=== PATIENT | male | born 1970 | race Native Hawaiian/Other Pacific Islander ===

== ENCOUNTER 2017-10-13 15:40 | Emergency (ER) | payer OTHER ==
[2017-10-13 15:56] VITALS: BP 144/93
--- NOTE | 2017-10-13 17:24 | ED Physician Documentation ---
History of Present Illness - Stated complaint Stated Complaint: SINUS PRESSURE - Chief complaint Chief Complaint: General - Additonal information Additional information: hx from pt 47 male sinus pressure and drainage for a month now with fever chills cough too Review of Systems Constitutional: reports: Fever, Chills Nose: reports: Congestion, Sinus pressure / pain Respiratory: reports: Cough GI: denies: Vomiting, Diarrhea Endocrine: denies: Easy bruising / bleeding Immunocompromised: denies: Immunocompromised PD PAST MEDICAL HISTORY - Past Medical History Past Medical History: No Respiratory: Pneumonia - Past Surgical History Past Surgical History: Yes General: Other - Present Medications Home Medications: Ambulatory Orders Medication Instructions Recorded Confirmed Aspirin Chewable [[place] 1 tab PO DAILY 10/13/17 10/13/17 Aspirin] Azithromycin [Zithromax] 250 mg PO DAILY #6 tablet 10/13/17 Benzonatate [Tessalon] 100 mg PO TID PRN #20 capsule 10/13/17 Fluticasone [Flonase] 1 sprays SOWMYA BID PRN #1 bottle 10/13/17 guaiFENesin/DEXTROMETHORPHAN 10 ml PO Q6H PRN #120 ml 10/13/17 [Robitussin Dm] - Allergies Allergies/Adverse Reactions: Allergies Allergy/AdvReac Type Severity Reaction Status Date / Time No Known Drug Allergies Allergy Verified 10/13/17 15:51 - Social History Does the pt smoke?: No Smoking Status: Never smoker Does the pt drink ETOH?: No Does the pt have substance abuse?: Yes Substance Use and Type: Marijuana - Immunizations Immunizations are current?: No - POLST Patient has POLST: No PD ED PE NORMAL - Vitals Vital signs reviewed: Yes - General General: Alert and oriented X 3 - HEENT HEENT: PERRL, Ears normal, Moist mucous membranes, Pharynx benign, Other (no sig sinus TTP or swelling) - Neck Neck: No: No adenopathy (sig ant adenopathy jamison) - Cardiac Cardiac: RRR - Respiratory Respiratory: Other (ronchi L side) - Derm Derm: Normal color - Neuro Neuro: Alert and oriented X 3 Results - Vitals Vitals: Vital Signs - 24 hr 10/13/17 15:51 Temperature 37.1 C Heart Rate 53 L Respiratory 14 Rate Blood Pressure 144/93 H O2 Saturation 100 Oxygen O2 Source Room air PD MEDICAL DECISION MAKING - ED course ED course: d/w pt and and they agree to tx presumptively for pna based on fever chills coigh and focal ronchi L lung Departure - Departure Disposition: 01 Home, Self Care Clinical Impression: Sinus congestion, Cervical adenopathy Pneumonia Qualifiers: Pneumonia type: due to unspecified organism Laterality: left Lung location: unspecified part of lung Qualified Code(s): J18.9 - Pneumonia, unspecified organism Condition: Good Instructions: ED Pneumonia Adult Follow-Up: Yonathan Haney DO [Primary Care Provider] - (to recheck the lymph nodes and lungs after finishing the antibiotics - if the symptoms do not resolve consider an xray. Please get your blood pressure rechecked as well) Prescriptions: Azithromycin [Zithromax] 250 mg PO DAILY #6 tablet Benzonatate [Tessalon] 100 mg PO TID PRN #20 capsule PRN Reason: to ease cough Fluticasone [Flonase] 1 sprays SOWMYA BID PRN #1 bottle PRN Reason: allergies guaiFENesin/DEXTROMETHORPHAN [Robitussin Dm] 10 ml PO Q6H PRN #120 ml PRN Reason: Cough Forms: Activity restrictions
== END 2017-10-13 17:46 | disposition home or self-care (01) ==
LOC: ED 15:40
DX: J18.9 Pneumonia, unspecified organism (principal); R09.81 Nasal congestion; R59.0 Localized enlarged lymph nodes; Z79.82 Long term (current) use of aspirin
CPT/HCPCS: 99283

== ENCOUNTER 2020-05-10 10:39 | Emergency (ER) | payer OTHER ==
[2020-05-10 11:12] LABS: GLUCOSE, URINE (UA) NEGATIVE (NEGATIVE); KETONES,URINE (UA) TRACE mg/dL (NEGATIVE); LEUKOCYTE ESTERASE, URINE NEGATIVE (NEGATIVE); NITRITE,URINE NEGATIVE (NEGATIVE); OCCULT BLOOD,URINE MODERATE (NEGATIVE); PH,URINE 5.5 PH (5.0-7.5); PROTEIN,URINE >=300 mg/dL (NEGATIVE); UROBILINOGEN,URINE 4 E.U./dL (NORMAL)
[2020-05-10 11:15] LABS: BILIRUBIN,URINE NEGATIVE (NEGATIVE); CLARITY,URINE HAZY (CLEAR); ICTOTEST,URINE NEGATIVE
[2020-05-10 11:26] LABS: BACTERIA,URINE Few /HPF (None Seen); MUCUS,URINE Few Strands; SQUAMOUS EPITHELIAL CELL,UR RARE Squamous (<= Few)
--- NOTE | 2020-05-10 11:51 | ED Physician Documentation ---
History of Present Illness - Stated complaint Stated Complaint: CONGESTION/R FOOT SWELLING - Chief complaint Chief Complaint: Cardiac - History obtained from History obtained from: Patient - Additonal information Additional information: 50-year-old male presents to the emergency department for evaluation of hand and feet swelling and new onset dyspnea. Patient reports that for the last 4 months at least he has noticed that the right hand and leg are markedly swollen especially when he wakes up in the morning. The swelling does improve through the day. However over the last 2 days he has noticed that he is short of air with even minimal exertion and has had some chest pressure. On initial exam in the room I note that both his arms and legs are swollen though the right side is slightly larger than the left. I also note that he is in atrial fibrillation. I asked this gentleman if he has any history of heart problems. He reports that in 2010 he was scheduled to undergo a neck fusion. On the morning of the surgery they did an EKG and found that he was in atrial fib. He reports that the surgery was canceled and he underwent 2 days of testing at [facility] in [place]. It is not clear to me what the final treatment plan for his atrial fib was or if he converted to sinus rythm. It seems that through the last 10 years this gentleman has never had treatment for his high blood pressure. at present he denies chest pressure, but feels very short of breath. He denies feeling light headed or dizzy. Review of Systems Constitutional: denies: Fever, Chills Nose: denies: Rhinorrhea / runny nose, Congestion Cardiac: reports: Palpitations, Pedal edema. denies: Chest pain / pressure, Calf pain Respiratory: reports: Dyspnea. denies: Cough, Hemoptysis, Wheezing GI: denies: Abdominal Pain, Abdominal Swelling, Nausea, Vomiting : denies: Dysuria, Frequency Skin: denies: Rash Musculoskeletal: denies: Neck pain, Back pain Neurologic: denies: Generalized weakness, Focal weakness, Numbness, Difficulty speaking, Syncope, Seizure, Altered mental status, Headache, Head injury Psychiatric: denies: Depressed, Suicidal PD PAST MEDICAL HISTORY - Past Medical History Past Medical History: Yes Cardiovascular: None Respiratory: Pneumonia Neuro: None Endocrine/Autoimmune: None GI: None : None HEENT: None Psych: None Musculoskeletal: None Derm: None - Past Surgical History Past Surgical History: Yes General: Other - Present Medications Home Medications: Ambulatory Orders Medication Instructions Recorded Confirmed Aspirin Chewable [[place]co 1 tab PO DAILY 10/13/17 10/13/17 Aspirin] - Allergies Allergies/Adverse Reactions: Allergies Allergy/AdvReac Type Severity Reaction Status Date / Time No Known Drug Allergies Allergy Verified 05/10/20 10:54 - Social History Does the pt smoke?: No Smoking Status: Never smoker Does the pt drink ETOH?: No Does the pt have substance abuse?: Yes - Immunizations Immunizations are current?: No - POLST Patient has POLST: No PD ED PE EXPANDED - General General: Alert, Well developed/nourished, Anxious - HEENT HEENT: Atraumatic, PERRL, Moist mucous membranes - Eyes Eyes: PERRL - Neck Neck: Supple w/out meningeal sx. No: Adenopathy - Cardiac Cardiac: Irregularly irregular, Murmur Present, Radial strong equal, Pedal strong equal, Cap refill < 2 sec, Other (All 4 extremities noted to be edematous though right side greater than left. Mildly pitting.) - Respiratory Respiratory: Clear to ausultation jamison. No: Distress, Labored, Wheezing, Decreased breath sounds - Abdomen Abdomen: Normal Bowel sounds. No: Tender to palpation - Back Back: No: CVA TTP right, CVA TTP left - Derm Derm: Bruising - Extremities Extremities: Pedal edema R, Pedal edema L. No: Right calf TTP/cord, Left calf TTP/cord - Neuro Neuro: Alert and Oriented X 3, CNII-XII intact, Normal finger nose, Normal speech - GCS Eye Opening: Spontaneous Motor: Obeys Commands Verbal: Oriented Total: 15 Results - Vitals Vitals: Vital Signs - 24 hr 05/10/20 05/10/20 05/10/20 10:48 12:22 13:10 Temperature 37.1 C Heart Rate 72 120 H 126 H Respiratory 20 27 H Rate Blood Pressure 159/124 H 152/125 H 156/131 H O2 Saturation 94 99 05/10/20 05/10/20 05/10/20 13:15 13:20 13:44 Temperature Heart Rate 96 92 86 Respiratory 30 H Rate Blood Pressure 156/113 H 146/113 H 160/109 H O2 Saturation 100 05/10/20 05/10/20 05/10/20 14:00 14:11 14:18 Temperature 36.9 C Heart Rate 103 H 97 90 Respiratory 24 27 H 28 H Rate Blood Pressure 152/121 H 160/128 H 149/118 H O2 Saturation 100 100 100 05/10/20 05/10/20 05/10/20 14:30 15:00 15:30 Temperature Heart Rate 97 86 87 Respiratory 22 24 17 Rate Blood Pressure 158/124 H 156/112 H 165/124 H O2 Saturation 100 100 100 05/10/20 05/10/20 05/10/20 16:00 16:30 17:00 Temperature Heart Rate 87 83 79 Respiratory 33 H 32 H 15 Rate Blood Pressure 140/120 H 159/116 H 161/123 H O2 Saturation 98 100 100 05/10/20 05/10/20 05/10/20 17:30 18:00 18:30 Temperature Heart Rate 64 83 86 Respiratory 21 19 19 Rate Blood Pressure 167/126 H 161/140 H 171/122 H O2 Saturation 100 100 100 05/10/20 05/10/20 05/10/20 19:00 19:49 20:00 Temperature Heart Rate 83 77 81 Respiratory 18 28 H Rate Blood Pressure 188/134 H 168/115 H 159/110 H O2 Saturation 99 100 100 Oxygen O2 Source Nasal cannula Oxygen Flow Rate 2 - EKG (time done) 1127 Rate: Rate (enter#) (103) Rhythm: Atrial fibrillation [place]: Other Intervals: Normal [place], Prolonged QT QRS: LVH Ischemia: Non specific changes (diffuse t wave flattening) Compare to prior EKG: Old EKG unavailable Computer interpretation: Agree with computer - Labs Labs: Laboratory Tests 05/10/20 05/10/20 05/10/20 11:07 12:00 12:00 WBC 5.8 RBC 4.72 Hgb 15.3 Hct 45.3 MCV 96.0 H MCH 32.4 H MCHC 33.8 RDW 13.6 Plt Count 169 MPV 10.5 Neut # (Auto) 3.7 Lymph # (Auto) 1.3 L Lipscomb # (Auto) 0.5 Eos # (Auto) 0.3 Baso # (Auto) 0.0 Absolute Nucleated RBC 0.00 Nucleated RBC % 0.0 PT INR Anti-Xa Level Sodium Potassium Chloride Carbon Dioxide Anion Gap BUN Creatinine Estimated GFR (MDRD) Glucose Calcium Total Bilirubin AST ALT Alkaline Phosphatase Troponin I High Sens C-React Prot High Sens B-Natriuretic Peptide 1833 H Total Protein Albumin Globulin Albumin/Globulin Ratio Lipase Urine Color DARK YELLOW Urine Clarity HAZY Urine pH 5.5 Ur Specific [place] >=1.030 H Urine Protein >=300 H Urine Glucose (UA) NEGATIVE Urine Ketones TRACE Urine Occult Blood MODERATE H Urine Nitrite NEGATIVE Urine Bilirubin NEGATIVE Urine Urobilinogen 4 H Ur Leukocyte Esterase NEGATIVE Urine RBC 11-25 H Urine WBC 6-10 H Ur Squamous Epith Cells RARE Squamous Urine Bacteria Few Urine Mucus Few Strands Ur Microscopic Review INDICATED 05/10/20 05/10/20 05/10/20 12:00 12:00 12:00 WBC RBC Hgb Hct MCV MCH MCHC RDW Plt Count MPV Neut # (Auto) Lymph # (Auto) Lipscomb # (Auto) Eos # (Auto) Baso # (Auto) Absolute Nucleated RBC Nucleated RBC % PT 17.4 H INR 1.6 H Anti-Xa Level Sodium 136 Potassium 3.6 Chloride 102 Carbon Dioxide 27 Anion Gap 7.0 BUN 21 H Creatinine 1.1 Estimated GFR (MDRD) 70 L Glucose 123 H Calcium 8.3 L Total Bilirubin 1.2 H AST 40 ALT 30 Alkaline Phosphatase 70 Troponin I High Sens 3131.3 H* C-React Prot High Sens B-Natriuretic Peptide Total Protein 7.6 Albumin 3.3 Globulin 4.3 H Albumin/Globulin Ratio 0.8 L Lipase 29 Urine Color Urine Clarity Urine pH Ur Specific [place] Urine Protein Urine Glucose (UA) Urine Ketones Urine Occult Blood Urine Nitrite Urine Bilirubin Urine Urobilinogen Ur Leukocyte Esterase Urine RBC Urine WBC Ur Squamous Epith Cells Urine Bacteria Urine Mucus Ur Microscopic Review 05/10/20 05/10/20 05/10/20 13:25 13:25 16:35 WBC RBC Hgb Hct MCV MCH MCHC RDW Plt Count MPV Neut # (Auto) Lymph # (Auto) Lipscomb # (Auto) Eos # (Auto) Baso # (Auto) Absolute Nucleated RBC Nucleated RBC % PT INR Anti-Xa Level 0.4 Sodium Potassium Chloride Carbon Dioxide Anion Gap BUN Creatinine Estimated GFR (MDRD) Glucose Calcium Total Bilirubin AST ALT Alkaline Phosphatase Troponin I High Sens 3267.2 H* C-React Prot High Sens 7.1 B-Natriuretic Peptide Total Protein Albumin Globulin Albumin/Globulin Ratio Lipase Urine Color Urine Clarity Urine pH Ur Specific [place] Urine Protein Urine Glucose (UA) Urine Ketones Urine Occult Blood Urine Nitrite Urine Bilirubin Urine Urobilinogen Ur Leukocyte Esterase Urine RBC Urine WBC Ur Squamous Epith Cells Urine Bacteria Urine Mucus Ur Microscopic Review - Rads (name of study) CXR Radiology: Final report received PD MEDICAL DECISION MAKING - ED course Complexity details: reviewed results, considered differential, d/w patient, d/w family ED course: 50 year-old male presents the emergency department for evaluation of 2 days of dyspnea but reports 4 months of hand arm and leg swelling on the right side. On initial presentation to the emergency department he is noted to be in atrial fib. He does report being evaluated for atrial fib nearly 10 years ago at [facility] in [place]. On initial exam he is noted to be quite hypertensive with a blood pressure of 185/100. His chest x-ray shows significantly enlarged heart. Initial labs also reveal a BNP of 1800 and a troponin greater than 3000. This is quite concerning for heart failure versus a cardiomyopathy versus myocarditis versus ACS. - I have initally ordered 325 mg asa, 5 mg labetalol and 1/2 in nitro. 1255: This gentleman will certainly need to be transferred for more extensive cardiac evaluation and testing then we are able to provide here. 1500: Patient has been accepted at [facility] for further cardiac evaluation. - It should be noted that his CRP today is normal. His troponin continues to rise. At this time we will initiate a heparin bolus and infusion for a NSTEMI preecautions. May be a few hours before bed is available at the receiving hospital. 1920: Patient's blood pressure has increased into the 180s systolically. We will reBed has become available at [facility]. ACLS transport will be here at 2100. The patient remains hemodynamically stable. He remains on the heparin infusion.peat the labetalol and Nitropaste application. He is also complaining of a minor headache and therefore we will give 25 mics of fentanyl 2015: A Departure - Departure Disposition: 02 Transfer Acute Care Hosp
[2020-05-10 12:14] LABS: BASOPHILS % (AUTO) 0.3 %; EOSINOPHILS # (AUTO) 0.3 10^3/uL (0.0-0.7); HGB - HEMOGLOBIN 15.3 g/dL (14.0-18.0); LYMPHOCYTES # (AUTO) 1.3 10^3/uL (1.5-3.5); LYMPHOCYTES % (AUTO) 22.8 %; MEAN CORPUSCULAR HEMOGLOBIN 32.4 pg (27.0-31.0); MEAN CORPUSCULAR HGB CONC 33.8 g/dL (32.0-36.0); MEAN PLATELET VOLUME 10.5 fL (7.4-11.4); MONOCYTES # (AUTO) 0.5 10^3/uL (0.0-1.0); MONOCYTES % (AUTO) 8.3 %; NEUTROPHILS # (AUTO) 3.7 10^3/uL (1.5-6.6); NEUTROPHILS % (AUTO) 63.3 %; PLT - PLATELET COUNT 169 10^3/uL (130-450); RED BLOOD COUNT 4.72 10^6/uL (4.70-6.10); RED CELL DISTRIBUTION WIDTH 13.6 % (12.0-15.0); WHITE BLOOD COUNT 5.8 x10^3/uL (4.8-10.8)
--- NOTE | 2020-05-10 12:29 | XRAY Report ---
PROCEDURE: Chest 1 View X-Ray INDICATIONS: Chest Pain TECHNIQUE: One view of the chest was acquired. COMPARISON: None FINDINGS: Surgical changes and devices: Cervical fixation plate. Lungs and pleura: Trace blunting of the left costophrenic angle. Mediastinum: Mediastinal contours appear normal. Heart size is markedly enlarged Bones and chest wall: No suspicious bony lesions. Overlying soft tissues appear unremarkable. IMPRESSION: Marked cardiomegaly with suspected mild left effusion. Reviewed by: Brittany Garcia MD on 05/10/2020 12:28 PM PDT Approved by: Brittany Garcia MD on 05/10/2020 12:28 PM PDT Station ID: [id number]
[2020-05-10 12:32] LABS: INR 1.6 (0.8-1.2); PT - PROTHROMBIN TIME 17.4 secs (9.9-12.6)
[2020-05-10 12:33] LABS: ALBUMIN 3.3 g/dL (3.2-5.5); ALBUMIN/GLOBULIN RATIO 0.8 (1.0-2.2); BILIRUBIN,TOTAL 1.2 mg/dL (0.2-1.0); CALCIUM 8.3 mg/dL (8.5-10.3); CREATININE 1.1 mg/dL (0.6-1.2); TOTAL PROTEIN 7.6 g/dL (6.7-8.2)
[2020-05-10] MEDS ORDERED: ASPIRIN CHEW 81 MG TABLET PO STA (12:53)
[2020-05-10] MEDS ORDERED: NITROGLYCERIN 2% PASTE TOP STA ×2 (12:53→19:21)
[2020-05-10] MEDS ORDERED: LABETALOL 20 MG/4 ML SYRINGE IVP STA ×2 (12:54→19:18)
[2020-05-10] MEDS ORDERED: HEPARIN 5,000 UNIT/ML VIAL IVP STA (15:13)
[2020-05-10] MEDS ORDERED: HEPARIN 25000UNITS/500ML (D5W) 25,000 UNIT/500 ML BAG IV STA (15:13)
[2020-05-10] MEDS ORDERED: fentaNYL 100 MCG/2 ML VIAL IVP STA (19:36)
[2020-05-10 21:02] VITALS: BP 163/121
== END 2020-05-10 21:23 | disposition short-term general hospital (02) ==
LOC: ED 10:39
DX: I21.4 Non-ST elevation (NSTEMI) myocardial infarction (principal); I11.9 Hypertensive heart disease without heart failure; I48.91 Unspecified atrial fibrillation; I45.81 Long QT syndrome; R79.89 Other specified abnormal findings of blood chemistry; R60.0 Localized edema; R51 Headache; Z79.82 Long term (current) use of aspirin
CPT/HCPCS: 36415; 71045; 80053; 81001; 83690; 83880; 84484; 85025; 85520; 85610; 86141; 93005; 96374; 96375; 96376; 99285; A9270; 81003

== ENCOUNTER 2021-09-06 14:38 | Emergency (ER) | payer OTHER ==
--- NOTE | 2021-09-06 15:00 | ED Physician Documentation ---
PD HPI MAJOR TRAUMA - Stated complaint Stated Complaint: NECK,UP BACK PX - Chief complaint Chief Complaint: Trauma Ch/Bk - History obtained from History obtained from: Patient - Additional information Additional information: 51-year-old gentleman with history of coronary disease on Plavix and history of multilevel cervical fusion done in 2010 was at work. He fell off a platform about 3 feet up and landed on the back of his head and hurt his neck. Briefly had tingling in the left arm noting that he always has some tingling and numbness in the arm as well as weakness since before his fusion. At this point that is no different than his baseline. No other injuries. Declines pain medication initial evaluation. He did have brief loss of consciousness when he fell. Review of Systems Eyes: denies: Loss of vision, Decreased vision Throat: reports: Reviewed and negative Cardiac: reports: Reviewed and negative Respiratory: reports: Reviewed and negative PD PAST MEDICAL HISTORY - Past Medical History Cardiovascular: None Respiratory: Pneumonia Neuro: None Endocrine/Autoimmune: None GI: None : None HEENT: None Psych: None Musculoskeletal: None Derm: None - Past Surgical History Past Surgical History: Yes General: Other - Present Medications Home Medications: Ambulatory Orders Medication Instructions Recorded Confirmed Aspirin Chewable [St Ricco 1 tab PO DAILY 10/13/17 09/06/21 Aspirin] Clopidogrel [Plavix] 1 tablet ORAL DAILY 09/06/21 09/06/21 HYDROcod/ACETAM 5/325 [[place] 5/325] 1 - 2 tab PO Q6H PRN #15 tablet 09/06/21 Metoprolol Tartrate [Lopressor] 1 tablet ORAL DAILY 09/06/21 09/06/21 - Allergies Allergies/Adverse Reactions: Allergies Allergy/AdvReac Type Severity Reaction Status Date / Time No Known Drug Allergies Allergy Verified 09/06/21 14:53 - Social History Does the pt smoke?: No Smoking Status: Never smoker Does the pt drink ETOH?: No Does the pt have substance abuse?: Yes - Immunizations Immunizations are current?: No - POLST Patient has POLST: No PD ED PE NORMAL - Vitals Vital signs reviewed: Yes - General General: Alert and oriented X 3, No acute distress - HEENT HEENT: PERRL, EOMI - Neck Neck: No bony TTP (He is in a cervical collar on my evaluation.) - Cardiac Cardiac: RRR, No murmur - Respiratory Respiratory: No respiratory distress, Clear bilaterally - Abdomen Abdomen: Normal bowel sounds, Soft, Non tender - Back Back: No CVA TTP, No spinal TTP - Derm Derm: Normal color, Warm and dry - Neuro Neuro: Alert and oriented X 3, Normal speech, Other (He does have some atrophy of the musculature of the left arm which he says is longstanding now. That said elevator examiner strength, thumb extension, interosseous strength, and flexion extension of the wrist seem relatively symmetric. He does have mild tingling type numbness of the left hand he says chronic) Eye Opening: Spontaneous Motor: Obeys Commands Verbal: Oriented GCS Score: 15 - Psych Psych: Normal mood, Normal affect Results - Vitals Vitals: Vital Signs - 24 hr 09/06/21 09/06/21 09/06/21 14:45 15:00 15:57 Temperature 37.4 C Heart Rate 85 94 78 Respiratory 16 16 16 Rate Blood Pressure 144/83 H 157/95 H 150/93 H O2 Saturation 100 100 100 09/06/21 16:41 Temperature Heart Rate 72 Respiratory Rate Blood Pressure 152/76 H O2 Saturation 100 Oxygen O2 Source Room air - Rads (name of study) CT of the head and cervical spine are unremarkable with intact hardware Radiology: EMP read contemporaneously Departure - Departure Disposition: 01 Home, Self Care Clinical Impression: Headache due to injury of head and neck, Fall from height of greater than 3 feet Condition: Good Record reviewed to determine appropriate education?: Yes Instructions: ED Head Injury Closed Prescriptions: HYDROcod/ACETAM 5/325 [[place] 5/325] 1 - 2 tab PO Q6H PRN #15 tablet PRN Reason: Pain Comments: [facility] [place]. Follow-up with your doctor in a week for recheck. Return for new or worsening symptoms. I am prescribing a short course of narcotic pain medication for you. These are potentially dangerous and addictive medications that should be used carefully. These medications may constipate you. Take an itpr-ggw-bnriaws stool softener (docusate) twice daily with plenty of water while taking these medications. If you go 24 hours without a bowel movement, take [id number] miralax, per package instructions. Do not drink or drive while taking these medications. If you received narcotic or sedating medications while in the emergency department, do not drive for 24 hours. Store this medication in a safe, secure place and out of reach of children. It is a violation of federal law to give or sell this medication to another person or to use in a manner other than prescribed. The ED will not refill narcotic prescriptions, including prescriptions lost or stolen. To dispose of unwanted medications: 1. [facility] at [address] in [place] has a medication drop box. They accept prescription medications (in pill form) Thursday through Thursday 9:00 a.m. to 5:00 p.m. 2. The [facility] [employer] accepts prescription medications (in pill form only) for disposal year round. Call for more information. 3. Contact the [facility] for the next [facility] sponsored prescription drug collection event. , [phone], or [phone]; Note that many narcotic pain relievers also contain Tylenol/acetaminophen. Please ensure that your total dose of acetaminophen from all sources does not exceed 3 g (3000 mg) per day. Discharge Date/Time: 09/06/21 16:30
--- NOTE | 2021-09-06 15:51 | CT Report ---
PROCEDURE: HEAD WO INDICATIONS: head injury/neck injury TECHNIQUE: Noncontrast 4.5 mm thick angled axial sections acquired from the foramen magnum to the vertex. For r adiation dose reduction, the following was used: automated exposure control, adjustment of mA and/or kV according to patient size. COMPARISON: Correlation is made with the accompanying cervical spine CT, 09/06/2021 FINDINGS: Image quality: There is streak artifact seen through the skull base. CSF spaces: Basal cisterns are patent. No extra-axial fluid collections. Ventricles are normal in size and shape. Brain: No midline shift. No intracranial masses or hemorrhage. Anglin-white matter interface is norm al. Skull and face: Calvarium and visualized facial bones are intact, without suspicious lesions. Sinuses: Visualized sinuses and mastoids are clear. IMPRESSION: No intracranial hemorrhage is seen. No significant intracranial abnormality is seen. Reviewed by: Miguel Angel Collins MD on 09/06/2021 2:49 PM [facility] Approved by: MiguelA ngel Collins MD on 09/06/2021 2:49 PM [facility] Station ID: [id number]
--- NOTE | 2021-09-06 15:53 | CT Report ---
PROCEDURE: CERVICAL SPINE WO INDICATIONS: head injury/neck injury TECHNIQUE: Noncontrast 3 mm thick sections acquired from the skull base to the T4 level. Sagittal and coronal r eformats were then constructed. For radiation dose reduction, the following was used: automated exp osure control, adjustment of mA and/or kV according to patient size. COMPARISON: Correlation is made with the accompanying head CT, 09/06/2021. FINDINGS: Image quality: Excellent. Bones: No fractures or dislocations. Visualized superior ribs are intact. Anterior fixation hardware is seen, C3-C7. No findings of hardware failure or hardware loosening can be seen. Posteriorly directed endplate osteophytes are seen, which are most prominent at C5-C6 and C6 -C7. Partial fusion of the facet joints can be seen. At C2-C3, there is mild to moderate disc space narrowing. Posterior directed endplate osteophytes are seen at this level. Within the visualized thoracic spine, bridging anterior osteophytes are seen. Soft tissues: Prevertebral soft tissues are normal in thickness. No paravertebral hematomas. No ap ical pneumothoraces. Atherosclerotic calcification is seen. IMPRESSION: No acute fractures are seen. Intact appearing hardware anteriorly, C3-C7. Underlying degenerative changes are seen. Reviewed by: Miguel Angel Collins MD on 09/06/2021 2:51 PM [place] Approved by: Miguel Angel Collins MD on 09/06/2021 2:51 PM [place] Station ID: [id number]
[2021-09-06 16:43] VITALS: BP 152/76
== END 2021-09-06 16:30 | disposition home or self-care (01) ==
LOC: ED 14:38
DX: S09.90XA Unspecified injury of head, initial encounter (principal); S19.9XXA Unspecified injury of neck, initial encounter; R51.9 Headache, unspecified; W17.89XA Other fall from one level to another, initial encounter; Y99.0 Civilian activity done for income or pay; Z98.1 Arthrodesis status; I25.10 Atherosclerotic heart disease of native coronary artery without angina pectoris; Z79.02 Long term (current) use of antithrombotics/antiplatelets; Z79.82 Long term (current) use of aspirin
CPT/HCPCS: 1040M; 70450; 72125; 99283; 99284

== ENCOUNTER 2021-11-12 18:06 | Emergency (ER) | payer OTHER ==
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
[2021-11-12] MEDS ORDERED: TETANUS/DIPHTHERIA/PERTUSSIS 0.5 ML SYRINGE IM ONE (18:49)
[2021-11-12 18:55] LABS: BASOPHILS % (AUTO) 0.3 %; EOSINOPHILS # (AUTO) 0.2 10^3/uL (0.0-0.7); HCT - HEMATOCRIT 42.9 % (42.0-52.0); HGB - HEMOGLOBIN 14.3 g/dL (14.0-18.0); LYMPHOCYTES # (AUTO) 1.3 10^3/uL (1.5-3.5); LYMPHOCYTES % (AUTO) 22.1 %; MEAN CORPUSCULAR HEMOGLOBIN 30.5 pg (27.0-31.0); MEAN CORPUSCULAR HGB CONC 33.3 g/dL (32.0-36.0); MEAN CORPUSCULAR VOLUME 91.5 fL (80.0-94.0); MEAN PLATELET VOLUME 10.6 fL (7.4-11.4); MONOCYTES # (AUTO) 0.6 10^3/uL (0.0-1.0); MONOCYTES % (AUTO) 9.4 %; NEUTROPHILS # (AUTO) 3.8 10^3/uL (1.5-6.6); PLT - PLATELET COUNT 161 10^3/uL (130-450); RED BLOOD COUNT 4.69 10^6/uL (4.70-6.10); RED CELL DISTRIBUTION WIDTH 13.2 % (12.0-15.0); WHITE BLOOD COUNT 5.9 x10^3/uL (4.8-10.8)
[2021-11-12 18:59] LABS: CALCIUM 8.4 mg/dL (8.5-10.3); CREATININE 0.9 mg/dL (0.6-1.2); POTASSIUM 3.6 mmol/L (3.5-5.0)
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
--- NOTE | 2021-11-12 19:27 | CT Report ---
PROCEDURE: CERVICAL SPINE WO INDICATIONS: head inj TECHNIQUE: Noncontrast 3 mm thick sections acquired from the skull base to the T4 level. Sagittal and coronal r eformats were then constructed. For radiation dose reduction, the following was used: automated exp osure control, adjustment of mA and/or kV according to patient size. COMPARISON: Cervical spine CT 09/06/2021. FINDINGS: Image quality: Excellent. Bones: Post surgical changes are seen from anterior fusion of the cervical spine extending from C3 t hrough C7. There is solid osseous fusion across the disc spaces. Mild degenerative changes are seen a t the C2-3 level. No acute osseous fracture or subluxation. The surgical hardware is intact. Visualiz ed superior ribs are intact. Soft tissues: Prevertebral soft tissues are normal in thickness. No paravertebral hematomas. No ap ical pneumothoraces. IMPRESSION: 1.No acute cervical spine fracture or subluxation. 2.Postsurgical changes from anterior cervical fusion extending from C3 through C7 with solid osseous fusion. Reviewed by: Deyvi Kimball MD on 11/12/2021 7:25 PM PST Approved by: Deyvi Kimball MD on 11/12/2021 7:25 PM PST Station ID: [id number]
[2021-11-12 20:12] VITALS: BP 158/91
== END 2021-11-12 21:15 | disposition home or self-care (01) ==
LOC: ED 18:06
DX: S09.90XA Unspecified injury of head, initial encounter (principal); S01.81XA Laceration without foreign body of other part of head, initial encounter; W22.8XXA Striking against or struck by other objects, initial encounter; R51.9 Headache, unspecified; I48.91 Unspecified atrial fibrillation; Z79.01 Long term (current) use of anticoagulants
CPT/HCPCS: 12011; 36415; 80048; 85025; 90471; 93005; 99282; 99284

== ENCOUNTER 2022-05-20 08:00 | Outpatient (CLI) | payer OTHER ==
[2022-06-20 21:47] LABS: THYROID STIMULATING HORMONE 0.11 uIU/mL (0.34-5.60)
[2022-06-20 22:42] LABS: FREE T4 (FREE THYROXINE) 0.77 ng/dL (0.58-1.64)
== END 2022-06-20 23:59 | disposition home or self-care (01) ==
LOC: LAB.N 08:00
PROVIDERS: ATTEND Family Medicine
DX: E05.90 Thyrotoxicosis, unspecified without thyrotoxic crisis or storm (principal)
CPT/HCPCS: 36415; 84439; 84443

== ENCOUNTER 2023-01-22 14:05 | Outpatient (CLI) | payer OTHER ==
--- NOTE | 2023-01-22 15:26 | XRAY Report ---
PROCEDURE: Finger(s) LT INDICATIONS: CELLUTIS OF LEFT FINGER, DISPLACED FRACTURE TECHNIQUE: AP hand, 2 views of the second finger(s) acquired. COMPARISON: None. FINDINGS: Bones: No fractures or dislocations. No suspicious bony lesions. Soft tissues: No suspicious soft tissue calcifications or masses. IMPRESSION: No acute bony abnormality. No displaced fracture. Reviewed by: Jakob Del Rosario on 01/22/2023 3:24 PM PDT Approved by: Jakob Del Rosario on 01/22/2023 3:24 PM PDT Station ID: [id number]
== END 2023-01-22 14:06 | disposition home or self-care (01) ==
LOC: DI 14:05
PROVIDERS: ATTEND Registered Nurse
DX: L03.012 Cellulitis of left finger (principal)

== ENCOUNTER 2024-04-20 15:33 | Outpatient (CLI) | payer OTHER ==
--- NOTE | 2024-04-20 16:38 | Sleep Patient Instructions ---
Sleep Center Visit Summary - Patient Visit Information Reason for Visit: Initial consult for evaluation of sleep disordered breathing and other sleep issues. - Patient Instructions Instructions Attached: Sleep Study, Sleep Study Home Monitor Additional Instructions: You will be completing a sleep study, either an in-lab polysomnography (PSG) or home sleep study (HST). You will follow-up in the sleep care office after the sleep study is completed to hear the results and talk about therapy, if needed. You will be called by our office staff to schedule this appointment, but you may contact us with any questions. - Clinic Information Contact: [facility] [address] [place] [id number] [email or web address] T: [phone]
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
[2024-04-20 16:54] VITALS: BP 158/96; O2SAT 96
== END 2024-04-20 15:34 | disposition home or self-care (01) ==
LOC: SC 15:33
PROVIDERS: ATTEND Nurse Practitioner Family
DX: G47.00 Insomnia, unspecified (principal); R53.83 Other fatigue; R06.81 Apnea, not elsewhere classified; R06.83 Snoring; G47.8 Other sleep disorders; G47.10 Hypersomnia, unspecified; E66.9 Obesity, unspecified; Z68.32 Body mass index [BMI] 32.0-32.9, adult
CPT/HCPCS: 99203; 99212

== ENCOUNTER 2024-05-26 14:21 | Outpatient (CLI) | payer OTHER | END 2024-05-26 14:22 | disposition home or self-care (01) | LOC: SC 14:21 | PROVIDERS: ATTEND Nurse Practitioner Family | DX: G47.33 Obstructive sleep apnea (adult) (pediatric) (principal); R09.02 Hypoxemia; E66.9 Obesity, unspecified; Z68.32 Body mass index [BMI] 32.0-32.9, adult | CPT/HCPCS: 95806 ==